=== PATIENT | male | born 1965 | race Two or more races ===

== ENCOUNTER 2018-08-10 11:26 | Emergency (ER) | payer BC ==
[~2018-08-10] VITALS: Ht 180.3 cm; Wt 107.5 kg
[2018-08-10 11:35] VITALS: BP 167/95
[2018-08-10] MEDS ORDERED: KETOROLAC TROMETH 60MG/2ML VIAL IM ONE (12:30)
== END 2018-08-10 13:09 | disposition home or self-care (01) ==
LOC: ER 11:26
DX: M25.562 Pain in left knee (principal)
CPT/HCPCS: 73562; 96372; 99284; J1885